=== PATIENT | male | born 1995 | race Caucasian/White ===

== ENCOUNTER 2023-01-08 16:16 | Emergency (ER) | payer BC ==
[~2023-01-08] VITALS: Ht 175.3 cm; Wt 88.5 kg
[2023-01-08] MEDS ORDERED: VIGAMOX3 ML OPTH (17:17)
== END 2023-01-08 17:28 | disposition home or self-care (01) ==
LOC: ED 16:16
DX: S05.02XA Injury of conjunctiva and corneal abrasion without foreign body, left eye, initial encounter (principal); W22.8XXA Striking against or struck by other objects, initial encounter; Z88.0 Allergy status to penicillin; Z88.2 Allergy status to sulfonamides
CPT/HCPCS: 99283